=== PATIENT | male | born 1955 | race Caucasian/White ===

== ENCOUNTER → 2022-10-20 | Outpatient (CLI) | payer MEDICARE ==
[2022-10-20 12:58] LABS: BILIRUBIN,URINE NEGATIVE (NEGATIVE); UROBILINOGEN,URINE 0.2 E.U./dL (0.2)
== END | disposition home or self-care (01) ==
LOC: NPLAB 12:37
PROVIDERS: ATTEND Internal Medicine
DX: N39.0 Urinary tract infection, site not specified (principal)
CPT/HCPCS: 81001

== ENCOUNTER → 2023-02-06 | Outpatient (CLI) | payer MEDICARE, MEDICAID ==
[2023-02-06 17:10] LABS: MEAN CORP HGB 31.7 pg (26-34); RED CELL DISTRIBUTION WIDTH 11.9 % (11.5-14.5)
[2023-02-06 17:27] LABS: CARBON DIOXIDE 26.7 mmol/L (20.0-32)
== END | disposition home or self-care (01) ==
LOC: NPLAB 17:01
PROVIDERS: ATTEND Internal Medicine
DX: J18.9 Pneumonia, unspecified organism (principal)
CPT/HCPCS: 36415; 80053; 85027